=== PATIENT | female | born 1960 | race Caucasian/White ===

== ENCOUNTER 2017-04-20 14:00 | Emergency (ER) | payer SELFPAY ==
[~2017-04-20] VITALS: Ht 157.5 cm; Wt 86.2 kg
[~2017-04-20 14:00] MED LIST: ALPR0.25 PO; AMOX875T PO; CYCL10TA2 PO; DOXE10CA PO; LOXA25CA PO; MELO7.5T29 PO; NAPR500T8 PO; OXCA300T PO; TRAM50TA PO
[2017-04-20 14:05] VITALS: BP 151/74
--- NOTE | 2017-04-20 14:26 | PHYS DOC ---
Past Medical History Past Medical History: Other Additional Past Medical Histor: tubal , MANIC/DEPRESSIVE Past Surgical History: Alcohol Use: None Drug Use: Marijuana Adult General Chief Complaint Chief Complaint: UPPER EXTREMITY PAIN HPI HPI Patient is a 56 year old female presents to the emergency Department initially telling the staff that she has having left upper back pain and discomfort for the last month. She denies any trauma or injury. She denies any motor vehicle crashes. Patient states that she's been taking Flexeril at night. She states that she's been occasionally taking Tylenol or ibuprofen for pain and discomfort. Patient states that she has come into the emergency department today because she has having left posterior lung pain. She denies any shortness of air or difficulty breathing. She does state that she has increased pain with deep breathing. She denies any cough or congestion. Patient does have equal strength noted bilaterally. She does have decreased range of motion with the left shoulder. Review of Systems Review of Systems Constitutional: Denies fever or chills [] Eyes: Denies change in visual acuity, redness, or eye pain [] HENT: Denies nasal congestion or sore throat [] Respiratory: Denies cough or shortness of breath. C/o left posterior lung pain Cardiovascular: No additional information not addressed in HPI [] GI: Denies abdominal pain, nausea, vomiting, bloody stools or diarrhea [] : Denies dysuria or hematuria [] Musculoskeletal: Left upper back pain and discomfort Integument: Denies rash or skin lesions [] Neurologic: Denies headache, focal weakness or sensory changes [] Endocrine: Denies polyuria or polydipsia [] Current Medications Current Medications Current Medications Medications (Trade) Dose Ordered Sig/[facility] Start Time Stop Time Status Last Admin Dose Admin Ibuprofen (Motrin) 800 mg 1X ONCE 04/20/17 14:30 04/20/17 14:31 DC 04/20/17 14:35 800 MG Allergies Allergies Allergies Coded Allergies Type Severity Reaction Last Updated Verified No Known Drug Allergies 04/24/15 No Physical Exam Physical Exam Constitutional: Well developed, well nourished, no acute distress, non-toxic appearance. [] HENT: Normocephalic, atraumatic, bilateral external ears normal, oropharynx moist, no oral exudates, nose normal. [] Eyes: PERRLA, EOMI, conjunctiva normal, no discharge. [] Neck: Normal range of motion, no tenderness, supple, no stridor. [] Cardiovascular:Heart rate regular rhythm, no murmur [] Lungs & Thorax: Bilateral breath sounds clear to auscultation [] Abdomen: Bowel sounds normal, soft, no tenderness, no masses, no pulsatile masses. [] Skin: Warm, dry, no erythema, no rash. [] Back: No cervical spine, no thoracic spine tenderness, no crepitus, no deformity , no step-offs. No nuchal rigidity noted Extremities: No tenderness, no cyanosis, no clubbing, ROM intact, no edema. [] Neurologic: Alert and oriented X 3, normal motor function, normal sensory function, no focal deficits noted. [] Psychologic: Affect normal, judgement normal, mood normal. [] Current Patient Data Vital Signs Vital Signs Date Time Temp Pulse Resp B/P (MAP) Pulse Ox O2 Delivery O2 Flow Rate FiO2 04/20/17 14:05 98.0 78 18 98 Room Air 98.0 EKG EKG [] Radiology/Procedures Radiology/Procedures [][facility] [address] [place] [address] IMAGING REPORT Signed PATIENT: JOHANN IVORY ACCOUNT: [id number] : 1960 LOCATION: ER AGE: 56 SEX: F EXAM STATUS: REG ER ORD. PHYSICIAN: RUDY BENTON APRN REASON: left posterior lung pain PROCEDURE: CHEST PA & LATERAL Chest, 2 views, 04/20/2017: History: Chest and back pain Comparison is made to a study from 05/03/2016. The heart size and pulmonary vascularity are normal. No pulmonary infiltrates are seen. There is no evidence of pleural fluid. Moderate hypertrophic spurring is present in the spine. IMPRESSION: No acute cardiopulmonary abnormality is detected. DICTATED and SIGNED BY: MERCEDES BEAULIEU MD DATE: 04/20/17 1443 CC: RUDY BENTON APRN; NO PCP; NON,STAFF ~ Course & Med Decision Making Course & Med Decision Making Pertinent Labs and Imaging studies reviewed. (See chart for details) Patients x-ray negative for abnormalities. Patient will be discharged home in stable condition. She will be provided with ibuprofen for pain and discomfort. She will be recommended to continue with the flexeril. Recommended warm moist packs, massages. Recommended to followup with primary care provider in 7-10 days. She will be provided with doctors list. Patient will be discharged home in stable condition. Signs and symptoms to return to the emergency department has been provided. All questions and concerns have been answered at patients beside. [] Dragon Disclaimer Dragon Disclaimer This electronic medical record was generated, in whole or in part, using a voice recognition dictation system. Departure Departure Impression: Primary Impression: Acute thoracic back pain Disposition: HOME, SELF-CARE Condition: STABLE Referrals: NO PCP (PCP) Patient Instructions: Back Pain, Adult, [id number] Additional Instructions: Activity as tolerated Medication as prescribed Continue with the flexeril that you have at home Ibuprofen for pain and discomfort. Take this medication with food, stop taking if you develop upset stomach Followup with primary care provider in 7-10 days Return to emergency department as needed for signs and symptoms that become worse. Scripts Ibuprofen (IBUPROFEN) 800 Mg Tablet 800 MG PO PRN Q6HRS Y for INFLAMMATION, #30 TAB Prov: RUDY BENTON APRN 04/20/17 Problem Qualifiers Primary Impression: Acute thoracic back pain Back pain laterality: unspecified Qualified Codes: M54.6 - Pain in thoracic spine RUDY BENTON APRN Apr 20, 2017 14:26
[2017-04-20] MEDS ORDERED: IBUPROFEN 800 MG TABLET. PO ONE (14:30)
--- NOTE | 2017-04-20 14:48 | RAD ---
Chest, 2 views, 04/20/2017: History: Chest and back pain Comparison is made to a study from 05/03/2016. The heart size and pulmonary vascularity are normal. No pulmonary infiltrates are seen. There is no evidence of pleural fluid. Moderate hypertrophic spurring is present in the spine. IMPRESSION: No acute cardiopulmonary abnormality is detected.
[2017-04-20] MEDS ORDERED: IBUP-1060 PO (15:15)
== END 2017-04-20 15:27 | disposition home or self-care (01) ==
LOC: ER 14:00
DX: M54.6 Pain in thoracic spine (principal); F32.9 Major depressive disorder, single episode, unspecified
CPT/HCPCS: 71020; 99284-25